=== PATIENT | male | born 1960 ===

== ENCOUNTER 2016-07-11 11:46 | Emergency (ER) | payer MEDICAID ==
[2016-07-11 11:46] VITALS: BMI 27.3
[2016-07-11 12:00] VITALS: O2SAT 95
--- NOTE | 2016-07-11 14:24 | RAD ---
HISTORY: cough/fever COMPARISON: No prior. TECHNIQUE: Chest PA and lateral FINDINGS: LUNGS: Mild venous congestion. Linear atelectasis at the right lung base. Patchy atelectatic changes at the left lung base. PLEURA: No significant pleural effusion identified. No pneumothorax apparent. CARDIOVASCULAR: Normal. OSSEOUS STRUCTURES: No significant abnormalities. VISUALIZED UPPER ABDOMEN: Normal. OTHER FINDINGS: None. IMPRESSION: Mild venous congestion. Linear atelectasis at the right lung base. Patchy atelectatic changes at the left lung base.
[2016-07-11 14:53] VITALS: BP 99/66; PULSE 74; RESP 20; TEMP 100.1
--- NOTE | 2016-07-11 14:53 | C.PDOC ---
History Of Present Illness A 55 year old male presents to the emergency room with complaints of a cough, cold, congestion, and fever for 2-3 days. There are no exacerbating or relieving factors. Patient denies any chest pain, shortness of breath, chills, nausea, vomiting, diarrhea, or any other complaints. Time Seen by Provider: 07/11/16 12:09 Chief Complaint (Nursing): Cough, Cold, Congestion History Per: Patient History/Exam Limitations: no limitations Onset/Duration Of Symptoms: Days (2-3 days) Current Symptoms Are (Timing): Still Present Severity: Mild Recent travel outside of the [place]: No Past Medical History Reviewed: Historical Data, Nursing Documentation, Vital Signs Vital Signs: Last Vital Signs Temp 100.1 F H 07/11/16 14:53 Pulse 74 07/11/16 14:53 Resp 20 07/11/16 14:53 BP 99/66 L 07/11/16 14:53 Pulse Ox 95 07/11/16 15:19 - Medical History PMH: Diabetes, HTN, Hyperlipidemia Family History: States: Unknown Family Hx - Social History Hx Alcohol Use: No Hx Substance Use: No - Immunization History Hx Tetanus Toxoid Vaccination: No Hx Influenza Vaccination: No Hx Pneumococcal Vaccination: No Review Of Systems Except As Marked, All Systems Reviewed And Found Negative. Constitutional: Positive for: Fever. Negative for: Chills ENT: Positive for: Nose Congestion Respiratory: Positive for: Cough. Negative for: Shortness of Breath Gastrointestinal: Negative for: Nausea, Vomiting, Diarrhea Physical Exam - Physical Exam Appears: Well, Non-toxic Skin: Normal Color, Warm, Dry Head: Atraumatic, Normacephalic Eye(s): bilateral: Normal Inspection Ear(s): Bilateral: Normal Nose: Normal, No Discharge, No Tenderness Oral Mucosa: Moist Throat: Normal, No Erythema, No Exudate Neck: Normal ROM, Supple Cardiovascular: Rhythm Regular Respiratory: Normal Breath Sounds, No Rales, No Rhonchi, No Wheezing Gastrointestinal/Abdominal: Soft, No Tenderness, No Guarding, No Rebound Extremity: Normal ROM, No Tenderness Neurological/Psych: Oriented x3, Normal Speech ED Course And Treatment O2 Sat by Pulse Oximetry: 95 - Radiology CXR: Interpreted by Me CXR Interpretation: Yes: No Acute Disease Progress Note: Influenza swab is negative. CXR is negative. Patient was given Zithromax and fingerstick was checked. Patient is resting comfortably, tolerating PO, and is afebrile at this time. Clinical signs and symptoms are not suggestive of sepsis, meningitis, UTI, pneumonia, intra-abdominal pathology , or cellulitis. Patient will be discharged home, and instructed to follow up with his physician in 1-2 days without fail. Patient was instructed to return for any worsening symptoms, persistent fever, neck pain, rash, abdominal pain, or vomiting. Disposition - Disposition Disposition: HOME/ ROUTINE Disposition Time: 14:53 Condition: STABLE Additional Instructions: Follow up with your PMD within 1-2 days. Return to Ed if feel worse. Prescriptions: Ibuprofen [Motrin Tab] 400 mg PO Q8 #30 tab Albuterol Sulfate [Proair Hfa] 1 puff IH Q6 PRN #1 inh PRN Reason: Cough Benzonatate [Tessalon Perles] 2 tab PO TID #60 sgl Azithromycin [Zithromax] 250 mg PO DAILY #4 tab Instructions: Acute Bronchitis (ED) Forms: Work Excuse - Clinical Impression Clinical Impression: Bronchitis - Scribe Statement The provider has reviewed the documentation as recorded by the Jillianibe John Truong Provider Scribe Attestation: All medical record entries made by the Jillianibe were at my direction and personally dictated by me. I have reviewed the chart and agree that the record accurately reflects my personal performance of the history, physical exam, medical decision making, and the department course for this patient. I have also personally directed, reviewed, and agree with the discharge instructions and disposition.
== END 2016-07-11 15:18 | disposition home or self-care (01) ==
LOC: C.ER 11:46
DX: J40 Bronchitis, not specified as acute or chronic (principal)

== ENCOUNTER 2017-04-04 05:56 | Day surgery (SDC) | payer MEDICAID ==
[2017-04-04 06:52] VITALS: BMI 32.0
[2017-04-04 07:04] VITALS: TEMP 96.9
[2017-04-04] MEDS ORDERED: Propofol 10 mg/ml Inj (20 ML) ONE (08:02)
[2017-04-04 09:02] VITALS: RESP 12
[2017-04-04 09:22] VITALS: O2SAT 100
[2017-04-04 09:24] VITALS: BP 129/75; PULSE 79
== END 2017-04-04 09:22 | disposition home or self-care (01) ==
LOC: C.ENDO 05:56
PROVIDERS: ATTEND Internal Medicine Gastroenterology
DX: K64.8 Other hemorrhoids (principal)
CPT/HCPCS: 45378; 82948; J2704; J7070

== ENCOUNTER 2018-05-15 10:37 | Outpatient (CLI) | payer MEDICAID | END 2018-05-15 10:38 | disposition home or self-care (01) | LOC: C.VASC 10:37 ==